=== PATIENT | male | born 1980 | race Caucasian/White ===

== ENCOUNTER 2025-03-02 15:19 | Emergency (ER) | payer MEDICAID ==
[~2025-03-02] VITALS: Ht 185.4 cm; Wt 90.0 kg
[2025-03-02] MEDS ORDERED: SUBOXONE 12 MG1 EACH SL (15:42)
[2025-03-02] MEDS ORDERED: CARBIDOPA-LEVO1 EAC9 (15:43)
[2025-03-02] MEDS ORDERED: COMPLETE M9 MG/15 ML (15:44)
[2025-03-02] MEDS ORDERED: SINEMET 10-1001 EACH (15:44)
[2025-03-02] MEDS ORDERED: MILLIPRED5 MG (15:45)
[2025-03-02] MEDS ORDERED: BUPRENORPHINE HC8 MG (15:46)
[2025-03-02] MEDS ORDERED: PREDNISONE20 MG PO (16:03)
[2025-03-02 16:11] VITALS: BP 116/82
== END 2025-03-02 16:12 | disposition home or self-care (01) ==
LOC: ED 15:19
DX: K51.90 Ulcerative colitis, unspecified, without complications (principal); G20.A1 Parkinson's disease without dyskinesia, without mention of fluctuations; Z79.899 Other long term (current) drug therapy
CPT/HCPCS: 99284

== ENCOUNTER 2025-03-12 08:42 | Emergency (ER) | payer MEDICAID ==
[~2025-03-12] VITALS: Ht 185.4 cm; Wt 89.9 kg
[~2025-03-12 08:42] MED LIST: BUPRENORPHINE HC8 MG; CARBIDOPA-LEVO1 EAC9; COMPLETE M9 MG/15 ML; MILLIPRED5 MG; PREDNISONE20 MG PO; SINEMET 10-1001 EACH; SUBOXONE 12 MG1 EACH SL
--- OUTSIDE RECORDS SUMMARY | 2025-03-12 08:48 | XMS ---
PreManage Notification: SOFI MCKEON [employer] Consultant Events No recent Security Events currently on file CRITERIA MET - [facility] - 2 Visits in 30 Days CARE PROVIDERS [facility], [facility]/Center: [facility] 08/22/2021-Current [facility] INTERNAL PHONE: [phone] TEAMKAILA Lead Infrastructure Architect/Assistant Cook [facility] PHONE: Unknown Amandeep has no Care Guidelines for this patient. EPeterson VISIT COUNT ([address] [facility] TOTAL 2 NOTE: Visits indicate total known visits. ED/UCC VISIT TRACKING (12 MO.) 03/12/2025 08:42 [facility] [place] TYPE: Emergency COMPLAINT: - RECTAL BLEEDING 03/02/2025 15:19 [facility] [place] TYPE: Emergency COMPLAINT: - BLOOD IN STOOL DIAGNOSES: - Hemorrhage of anus and rectum - Other filler leaf cutter long (current) drug therapy - Parkinson's disease without dyskinesia, without mention of fluctuations - Ulcerative colitis, unspecified, without complications INPATIENT VISIT TRACKING (12 MO.) No inpatient visits to display in this time frame [email or web address]
[2025-03-12 09:23] LABS: BASOPHILS 0.4 % (0-2); EOSINOPHILS 3.3 % (0-6); HEMOGLOBIN 14.3 g/dL (12.0-18.0); LYMPHOCYTES 47.6 % (24-44); MCH 29.8 (27-36); MCHC 34.1 g/dl (30-36); MCV 87.5 fl (81-99); NEUTROPHILS 39.7 % (39-80); PLATELET COUNT 283 K/uL (140-440); RBC 4.81 M/ul (4.3-5.7); RDW 14.2 (10.5-15.0)
[2025-03-12 09:40] LABS: ALBUMIN 3.8 g/dL (3.4-5.0); ALBUMIN/GLOBULIN RATIO 1.15 (1.1-2.4); ANION GAP 7.3 (7-21); BILIRUBIN, TOTAL 0.3 mg/dL (0.2-1.0); BUN/CREATININE RATIO 17.64 (6.0-28.6); CALCIUM 9.1 mg/dL (8.5-10.1); CREATININE, SERUM 1.19 mg/dL (0.70-1.30); POTASSIUM 4.3 mmol/L (3.5-5.1); PROTEIN, TOTAL 7.1 g/dL (6.4-8.2)
[2025-03-12 10:13] LABS: ABO O; RH POSITIVE
[2025-03-12 10:14] LABS: ANTIBODY SCREEN NEGATIVE
[2025-03-12] MEDS ORDERED: CANASA1000 MG PR (12:02)
[2025-03-12] MEDS ORDERED: PREDNISONE20 MG PO (12:02)
[2025-03-12 12:10] VITALS: BP 117/83
== END 2025-03-12 12:10 | disposition home or self-care (01) ==
LOC: ED 08:42
PROVIDERS: Emergency Medicine
DX: K62.5 Hemorrhage of anus and rectum (principal)
CPT/HCPCS: 36415; 74177; 80053; 83690; 85025; 86850; 86900; 86901; 99284-25; Q9967